=== PATIENT | male | born 1955 | race Caucasian/White ===

== ENCOUNTER 2016-05-24 06:00 | Inpatient (IN) | payer OTHER ==
[~2016-05-24] VITALS: Ht 177.8 cm; Wt 84.0 kg
[2016-05-24] VITALS (23 sets, daily range): BP systolic 86–137; BP diastolic 56–102; PULSE 74–108; RESP 12–23; Ht 177.8 cm; Wt 84.0 kg
[2016-05-24] MEDS ORDERED: POLYMYXIN/BACITRACIN 1L IRRIG IRR ONE (07:00)
[2016-05-24] MEDS ORDERED: LANT3I SC (07:15)
[2016-05-24] MEDS ORDERED: METF500T PO (07:15)
[2016-05-24] MEDS ORDERED: POTA99TA PO (07:15)
[2016-05-24] MEDS ORDERED: CLOP75TA27 PO (07:15)
[2016-05-24] MEDS ORDERED: LAS20 PO (07:15)
[2016-05-24] MEDS ORDERED: CEFAZOLIN 1 GM/50 ML (PMX) 50 ML IVPB ONE (07:32)
[2016-05-24 07:39] LABS: BASOPHILS % 0.2 % (0.0-2.0); EOSINOPHILS # 0.4 10^3/ul (0.0-0.5); EOSINOPHILS % 2.7 % (0.0-7.0); HEMATOCRIT 44.3 % (42.0-52.0); HEMOGLOBIN 15.6 g/dl (14.0-18.0); LYMPHOCYTES # 2.4 10^3/ul (0.8-2.9); LYMPHOCYTES % 18.6 % (15.0-51.0); MEAN CORPUSCULAR HEMOGLOBIN 31.9 pg (29.0-33.0); MEAN CORPUSCULAR HGB CONC 35.1 g/dl (32.0-37.0); MEAN PLATELET VOLUME 8.1 fl (7.4-10.4); MONOCYTE # 1.2 10^3/ul (0.3-0.9); MONOCYTES % 9.3 % (0.0-11.0); NEUTROPHILS % 69.2 % (39.0-77.0); PLATELET COUNT 395 10^3/UL (140-440); RED BLOOD COUNT 4.87 10^6/ul (4.70-6.10); RED CELL DISTRIBUTION WIDTH 12.3 % (11.5-14.5)
[2016-05-24 07:41] LABS: INR 0.99; PROTIME 13.1 Sec (12.2-14.2)
[2016-05-24 07:42] LABS: CONDITION 1; PARTIAL THROMBOPLASTIN TIME 28.5 Sec (25.0-35.0)
[2016-05-24 07:52] LABS: POTASSIUM 2.4 mmol/L (3.5-5.1)
[2016-05-24] MEDS ORDERED: POTASSIUM CHLORIDE (SR) 20 MEQ TAB PO STA (07:56)
[2016-05-24 07:59] LABS: CALCIUM 10.3 mg/dl (8.4-10.2); CREATININE 1.08 mg/dl (0.61-1.24)
[2016-05-24] MEDS ORDERED: POTASSIUM CHLORIDE 50 ML IVPB ONE (08:00)
[2016-05-24] MEDS ORDERED: MAGNESIUM SULFATE 2 GM/50 ML 50 ML IVPB ONE (08:00)
[2016-05-24] MEDS ORDERED: INSULIN REGULAR, HUMAN 100 UNIT/1 ML 3ML VIAL SC ONE (08:00)
--- NOTE | 2016-05-24 10:36 | CONS ---
DATE OF ADMISSION: 05/24/2016 DATE OF CONSULTATION: 05/24/2016 TYPE OF CONSULTATION: Cardiology. HISTORY OF PRESENT ILLNESS: Mr. Moore is a 60-year-old gentleman with known severe ischemic cardi omyopathy and a myocardial infarction 1 year ago. He has had multiple heart failure admissions. He was brought into the hospital today for elective placement of an implantable defibrillator for the primary prevention of sudden cardiac , given his severe cardiomyopathy and congestive heart simon lure. On routine preoperative labs he was noted to be hypoglycemic, with a blood sugar over 400, an d profoundly hypokalemic with a potassium of 2.4. He has been feeling weak and short of breath rece ntly. It is unclear if this is recently worse. REVIEW OF SYSTEMS: His review of systems is positive for shortness of breath and weakness. In addit ion, he complains of pain at the left alveolar site. He stopped Aldactone a couple weeks ago and ward s noted no improvement in the pain. PAST MEDICAL HX: Hyperlipidemia, [place] in 2014 and 2016, with 6 stents. Cardiogenic shock and LV dysfu nction in the past. SOCIAL HISTORY: Nonsmoker. PAST MEDICAL HISTORY: Significant for diabetes as well. MEDICATIONS: Prior to admission: 1. Carvedilol 3.125. 2. Plavix. 3. Zaroxolyn 10 mg daily. 4. Furosemide 40 mg daily. 5. Lipitor 40 mg. 6. Spironolactone has been discontinued. 7. Lisinopril 5 mg daily. 8. Ranexa 500 mg twice daily. PHYSICAL EXAMINATION: GENERAL: He is in no distress. VITAL SIGNS: Blood pressure is stable. Heart rate is steady. LUNGS: Clear. CARDIAC EXAM: Reveals a regular rate and rhythm. ABDOMEN: Soft, nontender, nondistended. EXTREMITIES: With no clubbing, cyanosis or edema. ASSESSMENT: 1. Severe ischemic cardiomyopathy. 2. Compensated congestive heart failure. 3. Profound hypokalemia. 4. Uncontrolled diabetes. At this point, I have replaced potassium with 40 mEq p.o. and 10 mEq , as well as 2 grams of m agnesium. I have asked Dr. Ricardo to see Mr. Moore to help manage his medical issues, and from a nephrology perspective, to address his electrolytes. ICD is deferred for now. Will reschedule, depending on his clinical condition. Dictated By: LESLIE VARMA/ROSA MARIA Conf#: [id number] DID#: [id number]
[2016-05-24 10:57] LABS: MAGNESIUM 1.4 mg/dl (1.7-2.5); PHOSPHORUS 3.9 mg/dl (2.5-4.9)
[2016-05-24] MEDS ORDERED: GLUCOSE GEL 15 GRAM TUBE PO PRN ×2 (11:00)
[2016-05-24] MEDS ORDERED: DEXTROSE 50% 50 ML SYRINGE IV PRN ×2 (11:00)
[2016-05-24] MEDS ORDERED: GLUCOSE GEL 15 GRAM TUBE BUCCAL PRN (11:00)
[2016-05-24] MEDS ORDERED: GLUCAGON 1 MG INJ IM PRN (11:00)
[2016-05-24] MEDS ORDERED: INSULIN GLARGINE [LANtus] 3 ML PEN SC SCH (11:30)
[2016-05-24] MEDS: HYDROCODONE/APAP (5/325) TAB PO PRN ×3 (11:33→23:11)
[2016-05-24] MEDS: INSULIN ASPART [NOVOLOG] 3 ML PEN SC SCH ×3 (11:47→21:37)
--- NOTE | 2016-05-24 12:10 | HP ---
DATE OF ADMISSION: 05/24/2016 CHIEF COMPLAINT: Acute kidney injury, hyperkalemia, alkalosis. HISTORY OF PRESENT ILLNESS: This is a 60-year-old male with a past medical history of ischemic card iomyopathy, history of non-STEMI. History of systolic, diastolic heart failure, history of diabetic neuropathy, who presents to [facility] to undergo elective ICD placement. The jose bateman was scheduled for ICD placement this morning by Dr. Torres. The patient, however, prior to t he procedure had laboratory data drawn, which showed a significant electrolyte abnormality, includin g severe hyperkalemia with potassium 2.4, alkalosis with a bicarbonate of 38, hypochloremia with a chloride level of 72. The patient also noted to have elevated glucose levels of 439. As a result o f these abnormalities, the procedure was discontinued and patient was admitted to telemetry for [facility] of electrolyte abnormalities and uncontrolled diabetes. Upon my evaluation, the patient at this time is currently complaining of bilateral lower extremity p ain which is chronic, which he attributes to diabetic neuropathy. The patient otherwise denies any active chest pain, nausea, vomiting, shortness of breath. PAST MEDICAL HISTORY: As stated above, history of ischemic cardiomyopathy, history of non-STEMI, h istory of congestive heart failure, history of diabetes, history of diabetic neuropathy. MEDICATIONS: The patient's medications have been reviewed and reconciled. ALLERGIES: ASPIRIN. FAMILY HISTORY: No family history of ____ heart disease. SOCIAL HISTORY: Does not actively drink, smoke or do drugs. REVIEW OF SYSTEMS: A 14-point review of systems was conducted. Pertinent positives stated in HPI, otherwise negative. PHYSICAL EXAMINATION: VITAL SIGNS: Blood pressure is 115/81, respirations 15, pulse 86, temperature 98.6. HEENT: Head is normocephalic. NECK: Supple. HEART: Regular rate. LUNGS: Show diminished breath sounds at base. ABDOMEN: Soft, nontender to palpation. No rebound or guarding. EXTREMITIES: Negative for clubbing, cyanosis, or edema. DERMATOLOGIC: No rashes. MUSCULOSKELETAL: No joint effusions. NEUROLOGIC: No focal deficits. LABORATORY DATA: Shows sodium 132, potassium 2.4, chloride 72, BUN 45, creatinine 1.08, glucose 439 , calcium 10.3. White count 13.0, hemoglobin 15.6, ____ 4.8, platelet count 395. ASSESSMENT AND PLAN: This is a 60-year-old male who presents with: 1. Severe hypokalemia. Etiology is due to diuretic therapy and underlying alkalosis. The patient is status post 80 equivalents of potassium chloride. Plan at this point is to hold diuretic therap y. We will repeat a potassium level, if remains low, will continue to replete. We will also correc t underlying alkalosis. Monitor closely. 2. Nonoliguric acute kidney injury with unknown previous baseline creatinine. Etiology is secondar y to hemodynamics, diuretic therapy and NAKIA inhibitor effect. Plan at this point is to hold diureti c therapy. We will hold NAKIA inhibitor. We will check a UA with microanalysis, check urine electrol ytes, calculate FENa. Will monitor renal function closely. 3. Metabolic alkalosis. Etiology is secondary to hypokalemia and chloride deficiency. As stated monique sims, plan is to repeat potassium chloride. 4. We will hold diuretic therapy. We will encourage p.o. intake, monitor bicarbonate levels. 5. Diabetes, currently uncontrolled. This is due to dietary noncompliance. Will start the patient on insulin sliding scale, Lantus 10 units subq x1. Diabetic diet and monitor. 6. History of ischemic cardiomyopathy. The patient currently appears compensated. Will hold diure tic therapy and follow up chest x-ray. Follow up with cardiology. The patient is pending possible ICD placement. 7. History of diabetic neuropathy. We will start the patient on [place] p.r.n. for pain and monitor. 8. History of coronary artery disease. Continue current medical management. 9. History of dyslipidemia. Continue to monitor. 10. GI/DVT prophylaxis. We will place the patient on Pepcid and Lovenox. Please note I spent over 30 minutes of face to face time with this patient, discussing code status. The patient is FULL CODE. Dictated By: LES DANIEL/ROSA MARIA Conf#: [id number] DID#: [id number]
--- NOTE | 2016-05-24 13:18 | RADRPT ---
PROCEDURE: XR Chest. CLINICAL INDICATION: Congestive heart failure TECHNIQUE: Chest AP portable. COMPARISON: No comparison available. FINDINGS: The mediastinal structures are unremarkable. There is mild cardiomegaly. The pulmonary vascularity is normal. The lung woodard are unremarkable. No consolidation is identified. The pleural spaces are unremarkable. The axial skeleton is unremarkable. IMPRESSION: Mild cardiomegaly No active intrathoracic disease. RPTAT: HGDB .Jian Law MD, MD Date Time Electronically viewed and signed by .Jian Law MD, on 05/24/2016 13:18 .B/
[2016-05-24 15:59] LABS: ADD UMIC NO; URINE BILIRUBIN (Dip) NEGATIVE (NEGATIVE); URINE BLOOD (Dip) NEGATIVE (NEGATIVE); URINE COLOR LT. YELLOW (YELLOW); URINE GLUCOSE (Dip) >=1000 % (NEGATIVE); URINE KETONES (Dip) NEGATIVE (NEGATIVE); URINE LEUKOCYTE ESTERASE (Dip) NEGATIVE (NEGATIVE); URINE NITRITE (Dip) NEGATIVE (NEGATIVE); URINE TOTAL PROTEIN (Dip) NEGATIVE (NEGATIVE); URINE UROBILINOGEN (Dip) 1.0 E.U./dL (0.1-1.0)
[2016-05-24] MEDS ORDERED: INSULIN ASPART [NOVOLOG] 3 ML PEN SC ONE ×2 (16:01→23:00)
[2016-05-24] MEDS: GABAPENTIN 300 MG CAP PO SCH ×2 (16:06→21:31)
[2016-05-24 16:20] LABS: CALCIUM 9.5 mg/dl (8.4-10.2); CREATININE 0.8 mg/dl (0.61-1.24)
[2016-05-24 16:22] LABS: POTASSIUM 2.4 mmol/L (3.5-5.1)
[2016-05-24] MEDS ORDERED: POTASSIUM CHLORIDE (SR) 20 MEQ TAB PO SCH (17:00)
[2016-05-24] MEDS ORDERED: POTASSIUM CHLORIDE 20 MEQ in SOD CHLORIDE 0.9% 100 ML IVPB ONE (17:00)
[2016-05-24] MEDS ORDERED: metFORMIN 500 MG TAB PO SCH (17:55)
[2016-05-24] MEDS ORDERED: FAMOTIDINE 20 MG TAB PO SCH (21:00)
[2016-05-24 21:43] LABS: POTASSIUM 3.1 mmol/L (3.5-5.1)
[2016-05-24 21:46] LABS: CREATININE 0.93 mg/dl (0.61-1.24)
[2016-05-24 21:47] LABS: CALCIUM 9.4 mg/dl (8.4-10.2); PHOSPHORUS 2.4 mg/dl (2.5-4.9)
[2016-05-25] VITALS: BP 104/74; RESP 15
[2016-05-25 00:36] VITALS: PULSE 88
[2016-05-25] MEDS ORDERED: ACCUCHECK XX SCH (02:00)
[2016-05-25 04:34] VITALS: PULSE 79
[2016-05-25 05:20] VITALS: BP 97/69; PULSE 68; RESP 16
[2016-05-25 06:18] LABS: ADD SCAN DIFF NO
[2016-05-25] MEDS ORDERED: POTASSIUM CHLORIDE 250 ML IVPB ONE (06:30)
[2016-05-25 06:33] LABS: BASOPHIL # 0.1 10^3/ul (0.0-0.1); BASOPHILS % 0.7 % (0.0-2.0); EOSINOPHILS # 0.6 10^3/ul (0.0-0.5); EOSINOPHILS % 6.6 % (0.0-7.0); HEMATOCRIT 39.1 % (42.0-52.0); HEMOGLOBIN 13.8 g/dl (14.0-18.0); LYMPHOCYTES # 3.1 10^3/ul (0.8-2.9); LYMPHOCYTES % 35.5 % (15.0-51.0); MEAN CORPUSCULAR HEMOGLOBIN 31.2 pg (29.0-33.0); MEAN CORPUSCULAR HGB CONC 35.3 g/dl (32.0-37.0); MEAN CORPUSCULAR VOLUME 88.5 fl (82.0-101.0); MEAN PLATELET VOLUME 9.4 fl (7.4-10.4); MONOCYTE # 0.9 10^3/ul (0.3-0.9); MONOCYTES % 10.2 % (0.0-11.0); NEUTROPHIL # 4.1 10^3/ul (1.6-7.5); NEUTROPHILS % 46.5 % (39.0-77.0); PLATELET COUNT 323 10^3/UL (140-415); RED BLOOD COUNT 4.42 10^6/ul (4.70-6.10); RED CELL DISTRIBUTION WIDTH 11.7 % (11.5-14.5); WHITE BLOOD COUNT 8.8 10^3/ul (4.8-10.8)
[2016-05-25 06:59] LABS: CREATININE 0.73 mg/dl (0.61-1.24)
[2016-05-25 07:00] LABS: PHOSPHORUS 2.3 mg/dl (2.5-4.9)
[2016-05-25 07:01] LABS: CALCIUM 9.3 mg/dl (8.4-10.2); MAGNESIUM 1.7 mg/dl (1.7-2.5)
[2016-05-25 07:13] LABS: POTASSIUM 2.7 mmol/L (3.5-5.1)
[2016-05-25 07:40] VITALS: BP 101/70; RESP 18
[2016-05-25] MEDS ORDERED: POTASSIUM CHLORIDE (SR) 20 MEQ TAB PO STA (08:09)
[2016-05-25 08:17] VITALS: PULSE 82
[2016-05-25] MEDS ORDERED: MAGNESIUM SULFATE 2 GM/50 ML 50 ML IVPB ONE (08:30)
[2016-05-25] MEDS ORDERED: ENOXAPARIN 40 MG/0.4 ML SYG SC SCH (09:00)
[2016-05-25] MEDS ORDERED: NEUTRA-PHOS 250 MG PACKET PO ONE (09:00)
[2016-05-25] MEDS ORDERED: CLOPIDOGREL 75 MG TAB PO SCH (09:00)
--- NOTE | 2016-05-25 09:17 | PN ---
DATE: 05/25/2016 SUBJECTIVE: The patient was stable overnight. He received over 120 mEq of potassium. The patient had no noted arrhythmia. The patient this morning; however, is expressing a desire to leave against medical advice. I explained in detail with the patient the importance of staying in the hospital g iven his hypokalemia, the risk for arrhythmia and possible . The patient states that his fathe r recently passed and he wants to get home in order to deal with the potential burial. No other acut e events noted. OBJECTIVE: VITAL SIGNS: Blood pressure is 101/70, respirations 18, pulse 72, temperature 98.0. HEENT: Head is normocephalic. Pupils are reactive to light. NECK: Supple. HEART: Regular rate. LUNGS: Showed diminished breath sounds at the base. ABDOMEN: Soft, nontender to palpation. No rebound or guarding. EXTREMITIES: Negative for clubbing or cyanosis. No edema. DERMATOLOGIC: No rashes. MUSCULOSKELETAL: Have no joint effusion. NEUROLOGIC: No change in exam. MEDICATIONS: The patient's medications have been reviewed. LABORATORY DATA: Shows sodium 135, potassium 2.7, chloride 84, bicarbonate 41, BUN 25, creatinine 0 .73. White count 8.8, hemoglobin 13.8, hematocrit 39.1, platelet count is 323. ASSESSMENT AND PLAN: 1. Severe hypokalemia. Etiology is multifactorial secondary to diuretic therapy, causing a total b xavi potassium deficit. Chloride deficiency and alkalosis, causing a transcellular potassium shift. The patient has received over 140 mEq of potassium chloride, with mild improvement. Plan at this p oint is to continue to hold diuretic therapy. Will give an additional 80 mEq of potassium chloride this morning. Will follow up a repeat potassium level. Will also correct underlying alkalosis, [facility] will help towards achieving a normal kalemia. Will monitor closely. 2. Metabolic alkalosis. Etiology is secondary to chloride deficiency and hypokalemia. Plan is to continue to replete potassium chloride, as stated above. Continue to hold diuretic therapy. Will c ontinue to monitor. Expect alkalosis to improve within the next 24 to 48 hours. 3. Nonoliguric acute kidney injury, with an unknown previous baseline creatinine. Etiology is seco ndary to hemodynamics, diuretic therapy, and recent NAKIA inhibitor effect. The patient's renal is im proving. Continue supportive care, renally dose all meds, and avoid nephrotoxins. 4. Diabetes. Currently uncontrolled. The patient's Lantus will be intensified to 16 units daily. Continue metformin. Continue an 1800 ADA diet. 5. History of ischemic cardiomyopathy. Currently compensated. Will hold diuretic therapy at this time and monitor closely. The patient is pending possible ICD placement. Will follow up with cardio logy. 6. History of diabetic neuropathy. Continue [place] and Lyrica. 7. History of coronary artery disease. Continue medical management. 8. History of dyslipidemia. Continue statin therapy. 9. Gastrointestinal and deep venous thrombosis prophylaxis. Continue proton pump inhibitor and Angela enox. 10. Hypophosphatemia. Will replete with potassium phosphate. 11. Hypomagnesemia. Will replete with magnesium sulfate 2 grams IV x1. Dictated By: LES DANIEL/ROSA MARIA Conf#: [id number] DID#: [id number]
[2016-05-26] MEDS ORDERED: INSULIN GLARGINE [LANtus] 3 ML PEN SC SCH (08:00)
[2016-05-28 16:53] LABS: MICROALBUMIN 0.2 mg/dL
== END 2016-05-25 08:15 | disposition left against medical advice (07) | DRG 303 ==
LOC: SDS 06:00 → TEL 08:04 → SDS 08:04
PROVIDERS: ADMIT Internal Medicine Cardiovascular Disease; ATTEND Internal Medicine Cardiovascular Disease
DX: I25.5 Ischemic cardiomyopathy (principal); N17.9 Acute kidney failure, unspecified; E87.3 Alkalosis; I50.42 Chronic combined systolic (congestive) and diastolic (congestive) heart failure; E83.39 Other disorders of phosphorus metabolism; E83.42 Hypomagnesemia; I25.2 Old myocardial infarction; E87.6 Hypokalemia; E11.65 Type 2 diabetes mellitus with hyperglycemia; E11.40 Type 2 diabetes mellitus with diabetic neuropathy, unspecified; E87.8 Other disorders of electrolyte and fluid balance, not elsewhere classified; I25.10 Atherosclerotic heart disease of native coronary artery without angina pectoris; E78.5 Hyperlipidemia, unspecified; T50.2X5A Adverse effect of carbonic-anhydrase inhibitors, benzothiadiazides and other diuretics, initial encounter; Y92.009 Unspecified place in unspecified non-institutional (private) residence as the place of occurrence of the external cause; Z53.09 Procedure and treatment not carried out because of other contraindication
CPT/HCPCS: 71010; 80048; 81003; 82043; 82962; 83036; 83735; 84100; 84155; 84300; 85025; 85610; 85730; J0690; J1815; J3475; J3480

== ENCOUNTER 2016-06-21 06:22 | Observation (INO) | payer OTHER ==
[2016-06-21] VITALS (29 sets, daily range): BP systolic 83–112; BP diastolic 60–77; PULSE 80–104; RESP 10–32; Ht 177.8 cm; Wt 88.0 kg
[~2016-06-21] VITALS: Ht 177.8 cm; Wt 88.0 kg
[~2016-06-21 06:22] MED LIST: CLOP75TA27 PO; LANT3I SC; LAS20 PO; METF500T PO; POTA99TA PO
[2016-06-21] MEDS ORDERED: CEFAZOLIN 1 GM/50 ML (PMX) 50 ML IVPB ONE (06:54)
[2016-06-21] MEDS ORDERED: SOD CHLORIDE 0.9% 1,000 ML ONE (06:54)
[2016-06-21] MEDS ORDERED: LIDOCAINE 1% (MDV) 20 ML INJ ONE ×2 (06:54→08:16)
[2016-06-21] MEDS ORDERED: IODIXANOL LOCM 50 ML BTL ONE (06:54)
[2016-06-21] MEDS ORDERED: MIDAZOLAM 1 MG/ML 2 ML INJ ONE (06:55)
[2016-06-21] MEDS ORDERED: FENTAnyl 50 MCG/ML VIAL ONE (06:56)
[2016-06-21] MEDS ORDERED: HEPARIN 1000 UNITS/NS (A-LINE) 0 ML ONE (07:05)
[2016-06-21] MEDS ORDERED: FURO20TA3 PO (07:16)
[2016-06-21] MEDS ORDERED: GABA300C16 PO (07:17)
[2016-06-21 07:18] LABS: ADD SCAN DIFF NO
[2016-06-21] MEDS ORDERED: METO2.5T12 PO (07:18)
[2016-06-21] MEDS ORDERED: ATOR40TA68 PO (07:19)
[2016-06-21] MEDS ORDERED: GEMF600T60 PO (07:21)
[2016-06-21] MEDS ORDERED: METF-382 PO (07:21)
[2016-06-21] MEDS ORDERED: MAGN400T22 PO (07:22)
[2016-06-21] MEDS ORDERED: INSU100C SQ (07:23)
[2016-06-21] MEDS ORDERED: LANT3I SC (07:23)
[2016-06-21 07:25] LABS: BASOPHIL # 0.1 10^3/ul (0.0-0.1); BASOPHILS % 0.8 % (0.0-2.0); EOSINOPHILS # 0.5 10^3/ul (0.0-0.5); EOSINOPHILS % 5.7 % (0.0-7.0); HEMATOCRIT 38.2 % (42.0-52.0); HEMOGLOBIN 13.8 g/dl (14.0-18.0); LYMPHOCYTES # 2.5 10^3/ul (0.8-2.9); LYMPHOCYTES % 29.4 % (15.0-51.0); MEAN CORPUSCULAR HEMOGLOBIN 32.2 pg (29.0-33.0); MEAN CORPUSCULAR HGB CONC 36.1 g/dl (32.0-37.0); MEAN CORPUSCULAR VOLUME 89.3 fl (82.0-101.0); MEAN PLATELET VOLUME 9.3 fl (7.4-10.4); MONOCYTE # 0.9 10^3/ul (0.3-0.9); MONOCYTES % 10.4 % (0.0-11.0); NEUTROPHIL # 4.6 10^3/ul (1.6-7.5); NEUTROPHILS % 53.4 % (39.0-77.0); PLATELET COUNT 330 10^3/UL (140-415); RED BLOOD COUNT 4.28 10^6/ul (4.70-6.10); WHITE BLOOD COUNT 8.6 10^3/ul (4.8-10.8)
[2016-06-21 07:31] LABS: INR 1.02; PROTIME 13.4 Sec (12.2-14.2)
[2016-06-21 07:32] LABS: PARTIAL THROMBOPLASTIN TIME 31.5 Sec (25.0-35.0)
[2016-06-21] MEDS ORDERED: POLYMYXIN/BACITRACIN 1L IRRIG IRR ONE (08:00)
[2016-06-21 08:17] LABS: POTASSIUM 3.2 mmol/L (3.5-5.1)
[2016-06-21 08:19] LABS: CREATININE 1.44 mg/dl (0.61-1.24)
[2016-06-21 08:20] LABS: CALCIUM 9.8 mg/dl (8.4-10.2)
[2016-06-21] MEDS: metFORMIN 500 MG TAB PO SCH ×2 (10:21→17:02)
--- NOTE | 2016-06-21 10:21 | RADRPT ---
PROCEDURE: XR Chest. CLINICAL INDICATION: Post pacemaker implant TECHNIQUE: Chest AP portable. COMPARISON: 05/24/2016 FINDINGS: There is a left-sided single lead AICD device. There is no evidence of a pneumothorax. The mediastinal structures are unremarkable. There is mild cardiomegaly. The pulmonary vascularity is normal. The lung woodard are unremarkable. No consolidation is identified. The pleural spaces are unremarkable. The axial skeleton is unremarkable. IMPRESSION: Left-sided single lead AICD device. No pneumothorax. Mild cardiomegaly No active intrathoracic disease. RPTAT: HGDB .Jian Law MD, Date Time Electronically viewed and signed by .Jian Law MD, on 06/21/2016 10:21 .B/
[2016-06-21] MEDS ORDERED: POTASSIUM CHLORIDE (SR) 20 MEQ TAB PO STA (10:35)
[2016-06-21] MEDS ORDERED: HYDROmorphONE 2 MG/ML SYG ONE (10:41)
--- NOTE | 2016-06-21 10:45 | OPR ---
DATE OF OPERATION: 06/21/2016 PREOPERATIVE DIAGNOSIS: Cardiomyopathy, CHF. OPERATION PERFORMED: Single chamber ICD implantation. POSTOPERATIVE DIAGNOSIS: Cardiomyopathy, CHF. INDICATION: The patient has known severe ischemic cardiomyopathy, and presents for ICD insertion for the primary prevention of sudden cardiac . DESCRIPTION OF PROCEDURE: The patient was brought to the catheterization laboratory in a fasting st ate. Informed consent was signed for the procedure and sedation. The patient was sedated using incremental doses of fentanyl and Versed. The first dose was given at 8:00 a.m. The patient was given antibiotics prior to the skin incision. The left pectoral region was prepped and draped in the usual sterile fashion. A 3-cm incision was made under the left clavicle. Venous access was obtained using the axillary approach under fluoroscopic guidance. A single 9.5 [facility] peel-away sheath was advanced to the subclavian vein. Through the introducer sheath, a right ventricular [employer] RV dual coil ICD lead was place d to the lower , where excellent pacing and sensing characteristics were confirmed. The lead was screwed into place. The sheath was split and the lead was sutured to the fascia using 0 silk no nabsorbable sutures. The lead was inserted into the defibrillator again. The camera was inserted i nto the pocket and sutured to the pectoral fascia using 0 silk nonabsorbable sutures. The pocket wa s irrigated with antibiotic solution. The pocket was closed in layers using 2-0 and 4-0 absorbable sutures. Surgical adhesive was applied to the skin. MANUFACTURE DATA: [place] [employer] model D140, serial #[id number]. The patient tolerated the procedure well, with no immediate complications. Dictated By: LESLIE VARMA/ROSA MARIA Conf#: [id number] DID#: [id number]
[2016-06-21] MEDS: HYDROmorphONE 1 MG/ML SYG IV PRN ×3 (10:58→20:05)
[2016-06-21] MEDS: INSULIN ASPART [NOVOLOG] 3 ML PEN SC SCH ×5 (11:05→20:34)
[2016-06-21] MEDS ORDERED: INSULIN LISPRO 10 UNIT SQ SCH (11:30)
--- NOTE | 2016-06-21 11:33 | HP ---
DATE OF ADMISSION: 06/21/2016 CHIEF COMPLAINT: Status post pacemaker placement, status post ICD placement. HISTORY OF PRESENT ILLNESS: This is a 60-year-old male with a past medical history of ischemic card iomyopathy, history of non-STEMI, history of diastolic systolic heart failure, history of diabetic neuropathy, history of hypokalemia, electrolyte abnormality likely from diuretic use, who presents t [facility] to undergo elective ICD placement. The patient was previously at [facility] 1 month ago for ICD placement; however, at that time, the procedure was ca nceled as the patient had a significant electrolyte abnormality. The patient subsequently left the hospital AMA. He now returns back to the hospital and had successful ICD placement by Dr. Torres. Intraoperatively, there were no complications and post-procedure, the patient is complaining of so me pain around the procedure site; however, denies any fevers, chills, nausea, vomiting. PAST MEDICAL HISTORY: History of ischemic cardiomyopathy, history of non-STEMI, history of CHF, toni betes, diabetic neuropathy. MEDICATIONS: The patient's medications have been reviewed and reconciled. ALLERGIES: PATIENT IS ALLERGIC TO ASPIRIN. FAMILY HISTORY: No family history of kidney disease or heart disease. SOCIAL HISTORY: Does not drink, smoke or do drugs. REVIEW OF SYSTEMS: A 14-point review of systems was conducted. Pertinent positives stated in HPI, otherwise negative. PHYSICAL EXAMINATION: VITAL SIGNS: Blood pressure is 120/71, respiratory rate 16, pulse 82, temperature 98.2. HEENT: Head is normocephalic. Pupils are reactive to light. NECK: Supple. HEART: Regular rate. LUNGS: Show diminished breath sounds at the base. ABDOMEN: Soft, nontender to palpation without rebound or guarding. EXTREMITIES: Negative for clubbing, cyanosis, or edema. DERMATOLOGIC: No rashes. MUSCULOSKELETAL: The patient's left arm is in a sling. CHEST: There is noted dressing over the left chest. Clean, dry and intact. NEUROLOGIC: No focal deficits. LABORATORY DATA: Shows white count 8.6, hemoglobin 13.8, hematocrit 38.2, platelet count is 330. S odium 136, potassium 3.2, chloride 82, bicarbonate 36, BUN 44, creatinine 1.43, glucose of 253. ASSESSMENT AND PLAN: 1. Cardiomyopathy. The patient is status post ICD placement. At this point, will continue to alfonso tor, continue pain control. We will follow up with Cardiology recommendations. 2. Nonoliguric acute kidney injury with a previous baseline creatinine of 0.7 mg/dL. Etiology is l ikely due to hemodynamics due to diuretic therapy. Plan at this point is to check UA with microanal ysis. Check urine electrolytes. We will hold diuretic therapy, monitor closely. 3. Hyperkalemia, etiology is multifactorial secondary to diuretic therapy, hypochloremia, metabolic alkalosis causing a transcellular potassium shift. Plan at this point would be to continue potassi um chloride repletion. Would recommend to hold diuretic therapy until the potassium levels normaliz e. We will monitor closely. 5. Metabolic alkalosis. Etiology secondary to hypochloremia. Plan at this point is to hold diuret ic therapy. We will continue to encourage salt intake. Will replete patient's underlying hypokalem ia which is a contributing factor to alkalosis and monitor closely. 6. Diabetes. Will continue Accu-Cheks, insulin sliding scale. 7. Diabetic neuropathy. Continue ____. 8. History of coronary artery disease. Continue medical management. 10. Dyslipidemia. Continue statin therapy. 11. Gastrointestinal and deep venous thrombosis prophylaxis. PPI and Lovenox. Please note I spent over 30 minutes of face to face time with the patient, discussing code status. The patient is FULL CODE. Dictated By: LES DANIEL/ROSA MARIA Conf#: [id number] DID#: [id number]
[2016-06-21] MEDS: GABAPENTIN 300 MG CAP PO SCH ×2 (15:11→20:06)
[2016-06-21] MEDS: CEFAZOLIN 1 GM/50 ML (PMX) 50 ML IVPB SCH ×2 (15:14→22:27)
[2016-06-21] MEDS: [UNRECOGNIZED DRUG - REMARK] XX SCH ×2 (15:15→22:30)
[2016-06-21 15:54] LABS: POTASSIUM 3.3 mmol/L (3.5-5.1)
[2016-06-21 15:56] LABS: CREATININE 1.06 mg/dl (0.61-1.24)
[2016-06-21 15:57] LABS: CALCIUM 9.2 mg/dl (8.4-10.2)
[2016-06-21] MEDS: FUROSEMIDE 20 MG TAB PO SCH (17:02)
[2016-06-21] MEDS: HYDROCODONE/APAP (5/325) TAB PO PRN (17:09)
[2016-06-21] MEDS: GEMFIBROZIL 600 MG TAB PO SCH (20:06)
--- NOTE | 2016-06-21 20:35 | RADRPT ---
Vent Rate: 90 bpm RR Interval: 0 msec [place] Interval: 158 msec QRS Duration: 94 msec QT Interval: 404 msec QTC Interval: 494 msec P-R-T [place]: 49 - -6 - 41 degrees Normal sinus rhythm Low voltage QRS Prolonged QT Abnormal ECG Electronically Signed By: Jules Guadarrama [id number]
[2016-06-21] MEDS ORDERED: INSULIN GLARGINE [LANtus] 3 ML PEN SC SCH (21:00)
[2016-06-21] MEDS ORDERED: ATORVASTATIN 40 MG TAB PO SCH (21:00)
[2016-06-22] VITALS (10 sets, daily range): BP systolic 90–103; BP diastolic 55–68; PULSE 79–94; RESP 18–21
[2016-06-22] MEDS ORDERED: ACCUCHECK XX SCH (02:00)
[2016-06-22] MEDS: [UNRECOGNIZED DRUG - REMARK] XX SCH ×2 (05:07→13:33)
[2016-06-22] MEDS: HYDROmorphONE 1 MG/ML SYG IV PRN (05:55)
[2016-06-22] MEDS: FUROSEMIDE 20 MG TAB PO SCH (05:57)
[2016-06-22 06:15] LABS: ADD SCAN DIFF NO
[2016-06-22 06:22] LABS: BASOPHILS % 0.5 % (0.0-2.0); EOSINOPHILS # 0.6 10^3/ul (0.0-0.5); EOSINOPHILS % 7.2 % (0.0-7.0); HEMATOCRIT 37.2 % (42.0-52.0); HEMOGLOBIN 12.6 g/dl (14.0-18.0); LYMPHOCYTES # 2.1 10^3/ul (0.8-2.9); LYMPHOCYTES % 26.6 % (15.0-51.0); MEAN CORPUSCULAR HEMOGLOBIN 31.1 pg (29.0-33.0); MEAN CORPUSCULAR HGB CONC 33.9 g/dl (32.0-37.0); MEAN CORPUSCULAR VOLUME 91.9 fl (82.0-101.0); MEAN PLATELET VOLUME 9.7 fl (7.4-10.4); MONOCYTE # 0.9 10^3/ul (0.3-0.9); MONOCYTES % 11.7 % (0.0-11.0); NEUTROPHIL # 4.3 10^3/ul (1.6-7.5); NEUTROPHILS % 53.7 % (39.0-77.0); PLATELET COUNT 254 10^3/UL (140-415); RED BLOOD COUNT 4.05 10^6/ul (4.70-6.10); RED CELL DISTRIBUTION WIDTH 12.2 % (11.5-14.5); WHITE BLOOD COUNT 7.9 10^3/ul (4.8-10.8)
[2016-06-22] MEDS ORDERED: GLUCOSE GEL 15 GRAM TUBE PO PRN ×2 (06:30)
[2016-06-22] MEDS ORDERED: GLUCOSE GEL 15 GRAM TUBE BUCCAL PRN (06:30)
[2016-06-22] MEDS ORDERED: DEXTROSE 50% 50 ML SYRINGE IV PRN ×2 (06:30)
[2016-06-22] MEDS ORDERED: GLUCAGON 1 MG INJ IM PRN (06:30)
[2016-06-22 06:43] LABS: POTASSIUM 2.4 mmol/L (3.5-5.1)
[2016-06-22 06:44] LABS: CREATININE 0.82 mg/dl (0.61-1.24)
[2016-06-22 06:45] LABS: CALCIUM 9.2 mg/dl (8.4-10.2); MAGNESIUM 1.6 mg/dl (1.7-2.5); PHOSPHORUS 2.9 mg/dl (2.5-4.9)
[2016-06-22] MEDS ORDERED: POTASSIUM CHLORIDE 250 ML IVPB ONE (07:30)
[2016-06-22] MEDS ORDERED: POTASSIUM CHLORIDE (SR) 20 MEQ TAB PO ONE (07:30)
[2016-06-22] MEDS: GABAPENTIN 300 MG CAP PO SCH ×2 (07:59→12:24)
[2016-06-22] MEDS: GEMFIBROZIL 600 MG TAB PO SCH (07:59)
[2016-06-22] MEDS: metFORMIN 500 MG TAB PO SCH (08:00)
[2016-06-22] MEDS: INSULIN ASPART [NOVOLOG] 3 ML PEN SC SCH ×4 (08:02→12:25)
--- NOTE | 2016-06-22 08:32 | PN ---
DATE: 06/22/2016 SUBJECTIVE: The patient had successful ICD placed yesterday, without any complications. The patien t yesterday was noted to have hypokalemia and received potassium chloride supplementation. The sera ent's pain is present, but controlled. No other acute events noted. OBJECTIVE: VITAL SIGNS: Blood pressure 94/62, respirations 19, pulse 84, temperature 98.2. HEENT: Head is normocephalic. NECK: Supple. HEART: Regular rate. LUNGS: Showed diminished breath sounds at the base. CHEST: On chest exam the patient has an ICD placement, with no surrounding hematoma on the left uppe r chest. ABDOMEN: Soft, nontender to palpation. No rebound or guarding. EXTREMITIES: Negative for clubbing or cyanosis. No edema. DERMATOLOGIC: No rashes. MUSCULOSKELETAL: Have no joint effusions. NEUROLOGIC: No focal deficits. LABORATORY DATA: Shows sodium 137, potassium 2.4, chloride 88, BUN 28, creatinine 0.82, magnesium 1 .6. White count 7.9, hemoglobin 12.6, hematocrit 37.2, platelet count 254. ASSESSMENT AND PLAN: 1. Cardiomyopathy. The patient is status post ICD placement. At this point will continue to monit or, continue pain control. 2. Nonoliguric acute kidney injury, with a previous baseline creatinine of 0.7 mg/dL. Etiology is secondary to hemodynamics and diuretics. The patient's renal function has improved with supportive care and holding diuretic therapy. Will continue to monitor. 3. Severe hypokalemia. Etiology is multifactorial secondary to diuretic therapy, hypochloremia and metabolic alkalosis. The patient will receive 100 mEq of potassium chloride today, 60 mEq p.o. and 40 mEq IV. Will also replete the patient's magnesium, which is a contributing factor. Will hold d iuretic therapy. Will repeat a potassium level at 1400 and monitor closely. 4. Metabolic alkalosis. Etiology is secondary to hypochloremia and hypokalemia. Plan is to hold d iuretic therapy. Will replete and correct underlying hypokalemia and monitor. 5. Diabetes. Continue Accu-Cheks and insulin sliding scale. 6. Diabetic neuropathy. Continue Neurontin. 7. Dyslipidemia. Continue statin therapy. 8. History of coronary artery disease. Continue the current medical management. 9. Hypomagnesemia. Will replete with magnesium sulfate 3 grams IV x1. Dictated By: LES DANIEL/ROSA MARIA Conf#: [id number] DID#: [id number]
[2016-06-22] MEDS ORDERED: METOLAZONE 2.5 MG TAB PO SCH (09:00)
[2016-06-22] MEDS ORDERED: MAGNESIUM OXIDE 400 MG TAB PO SCH (09:00)
[2016-06-22] MEDS ORDERED: POTASSIUM GLUCONATE PO SCH (09:00)
[2016-06-22] MEDS ORDERED: MAGNESIUM SULFATE 3 GM in SOD CHLORIDE 0.9% 100 ML IVPB ONE (09:00)
[2016-06-22] MEDS: HYDROCODONE/APAP (5/325) TAB PO PRN ×3 (09:38→17:15)
[2016-06-22 12:02] LABS: POTASSIUM 3.4 mmol/L (3.5-5.1)
[2016-06-22 12:04] LABS: CREATININE 0.85 mg/dl (0.61-1.24)
[2016-06-22 12:05] LABS: CALCIUM 9.8 mg/dl (8.4-10.2)
--- NOTE | 2016-06-22 15:00 | CONS ---
Date/Time of Note Date/Time of Note DATE: 06/22/16 TIME: 14:55 Assessment/Plan Assessment/Plan Additional Assessment/Plan ICM s/p AICD Compensated Systolic CHF DM -pt doing well s/p AICD. Site with in normal limits. Discussed activity restriction with patient. DC planning. Consultation Date/Type/Reason Admit Date/Time Jun 21, 2016 at 09:13 Initial Consult Date Type of Consultation: cv 24 HR Interval Summary Free Text/Dictation mild chest wall pain, no sob or dizziness Exam/Review of Systems Vital Signs Vitals Vital Signs Date Time Temp Pulse Resp B/P Pulse Ox O2 Delivery O2 Flow Rate FiO2 06/22/16 14:53 98.2 73 18 90/55 96 06/21/16 09:38 Room Air Intake and Output 06/21/16 06/21/16 06/22/16 15:00 23:00 07:00 Intake Total 820 ml 250 ml Output Total 450 ml 550 ml Balance 370 ml -300 ml Exam nad, eating Constitutional: alert, obese, oriented Head: normocephalic Neck: supple Respiratory: clear to auscultation, normal air movement Cardiovascular: other (s1s2), regular rate and rhythm Gastrointestinal: bowel sounds, non-tender, other, soft Musculoskeletal: other (Left upper chest wall with clean incision, no erythema or drainage. Mild echymosis) Extremities: edema (trace) Results Result Diagram: 06/22/16 0545 06/22/16 1140 Results 24 hrs Laboratory Tests Test 06/21/16 15:30 06/21/16 16:50 06/21/16 20:12 06/22/16 02:30 Anion Gap 13 # Blood Urea Nitrogen 37 H Calcium Level 9.2 Carbon Dioxide Level 39 H Chloride Level 88 L Creatinine 1.06 Glucose Level 214 Potassium Level 3.3 L Sodium Level 137 Bedside Glucose 228 H 163 254 H Test 06/22/16 05:14 06/22/16 05:45 06/22/16 07:20 06/22/16 11:35 Anion Gap 11 Blood Urea Nitrogen 28 H Calcium Level 9.2 Carbon Dioxide Level 40 H Chloride Level 88 L Creatinine 0.82 Glucose Level 183 Magnesium Level 1.6 L Phosphorus Level 2.9 Potassium Level 2.4 *L 3.4 L Sodium Level 137 Basophils # 0.0 Basophils % 0.5 Eosinophils # 0.6 H Eosinophils % 7.2 H Hematocrit 37.2 L Hemoglobin 12.6 L Lymphocytes # 2.1 Lymphocytes % 26.6 Mean Corpuscular Hemoglobin 31.1 Mean Corpuscular Hemoglobin Concent 33.9 Mean Corpuscular Volume 91.9 Mean Platelet Volume 9.7 Monocytes # 0.9 Monocytes % 11.7 H Neutrophils # 4.3 Neutrophils % 53.7 Nucleated Red Blood Cells # 0.0 Nucleated Red Blood Cells % 0.0 Platelet Count 254 # Red Blood Count 4.05 L Red Cell Distribution Width 12.2 White Blood Count 7.9 Bedside Glucose 234 H Test 06/22/16 11:40 06/22/16 12:15 Anion Gap 15 Blood Urea Nitrogen 29 H Calcium Level 9.8 Carbon Dioxide Level 39 H Chloride Level 88 L Creatinine 0.85 Glucose Level 198 Potassium Level 3.4 L Sodium Level 139 Bedside Glucose 201 Medications Medications Current Medications Atorvastatin Calcium (Lipitor) 40 mg QHS PO Last administered on 06/21/16 20:06 ; Admin Dose 40 MG; Start 06/21/16 at 21:00 Gabapentin (Neurontin) 600 mg TID PO Last administered on 06/22/16 12:24; Admin Dose 600 MG; Start 06/21/16 at 13:00 Gemfibrozil (Lopid) 600 mg BID PO Last administered on 06/22/16 07:59; Admin Dose 600 MG; Start 06/21/16 at 21:00 Insulin Glargine (Lantus) 10 unit QHS SC Last administered on 06/21/16 20:28; Admin Dose 10 UNIT; Start 06/21/16 at 21:00 Magnesium Oxide (Mag-Ox 400) 400 mg DAILY PO Last administered on 06/22/16 08: 13; Admin Dose 400 MG; Start 06/22/16 at 09:00 Metolazone (Zaroxolyn) 2.5 mg DAILY PO ; Start 06/22/16 at 09:00; Status Future Hold Miscellaneous Information 20 mg DAILY PO ; Start 06/22/16 at 09:00; Status UNV Diagnostic Test (Pha) (Accucheck) 1 ea 02 XX Last administered on 06/22/16 02: 35; Admin Dose 1 EA; Start 06/22/16 at 02:00 Miscellaneous Information (*Order Clarification Bulletin) POTASSIUM GLUCONATE IS NON FORMULARY....PLE... Q8H XX Last administered on 06/22/16 13:33; Admin Dose 1 EA; Start 06/21/16 at 14:30 Acetaminophen/ Hydrocodone Bitart ([place] (5/325)) 2 tab Q4H PRN PO PAIN Last administered on 06/22/16 13:37; Admin Dose 2 TAB; Start 06/21/16 at 14:30 Miscellaneous Information 1 ea NOTE XX ; Start 06/22/16 at 06:30 Glucose (Glutose) 15 gm Q15M PRN PO DECREASED GLUCOSE; Start 06/22/16 at 06:30 Glucose (Glutose) 22.5 gm Q15M PRN PO DECREASED GLUCOSE; Start 06/22/16 at 06: 30 Dextrose (D50w Syringe) 25 ml Q15M PRN IV DECREASED GLUCOSE; Start 06/22/16 at 06:30 Dextrose (D50w Syringe) 50 ml Q15M PRN IV DECREASED GLUCOSE; Start 06/22/16 at 06:30 Glucagon (Glucagen) 1 mg Q15M PRN IM DECREASED GLUCOSE; Start 06/22/16 at 06:30 Glucose (Glutose) 15 gm Q15M PRN BUCCAL DECREASED GLUCOSE; Start 06/22/16 at 06 :30 Johny Courtney DO Jun 22, 2016 15:00
== END 2016-06-22 17:20 | disposition home or self-care (01) ==
LOC: SDS 06:22 → REC 09:13 → TEL 12:08
PROVIDERS: ADMIT Internal Medicine Cardiovascular Disease; ATTEND Internal Medicine Cardiovascular Disease
DX: I50.40 Unspecified combined systolic (congestive) and diastolic (congestive) heart failure (principal); I25.5 Ischemic cardiomyopathy; E87.6 Hypokalemia; E87.3 Alkalosis; E11.40 Type 2 diabetes mellitus with diabetic neuropathy, unspecified; I25.10 Atherosclerotic heart disease of native coronary artery without angina pectoris; E78.5 Hyperlipidemia, unspecified; E83.42 Hypomagnesemia
CPT/HCPCS: 33249; 71010; 80048; 82962; 83735; 84100; 84132; 85025; 85610; 85730; 93005; 96372; 96374; 96375; 96376; C1722; C1895; C2629; J0690; J1170; J1815; J2250; J3010; J3475; J3480; J7040; Q9967; Z7500; Z7610; G0378; J1644